=== PATIENT | male | born 1950 | race Caucasian/White ===

== ENCOUNTER 2024-08-02 08:30 | Day surgery (SDC) | payer MEDICARE, OTHER ==
[2024-08-02] MEDS: Lactated Ringers 1,000 ML IV SCH (08:51)
[2024-08-02] MEDS ORDERED: Propofol 200 MG/20 ML SDV ONE (08:51)
[2024-08-02] MEDS ORDERED: fentaNYL 100 MCG/2 ML SDV ONE (08:51)
== END 2024-08-02 11:37 | disposition home or self-care (01) ==
LOC: VM.SDS 08:30
PROVIDERS: ATTEND Family Medicine
DX: Z12.11 Encounter for screening for malignant neoplasm of colon (principal); K57.30 Diverticulosis of large intestine without perforation or abscess without bleeding; R19.5 Other fecal abnormalities; E78.00 Pure hypercholesterolemia, unspecified; I10 Essential (primary) hypertension; E11.9 Type 2 diabetes mellitus without complications; G47.30 Sleep apnea, unspecified; M10.072 Idiopathic gout, left ankle and foot; M75.21 Bicipital tendinitis, right shoulder; F17.210 Nicotine dependence, cigarettes, uncomplicated; Z79.82 Long term (current) use of aspirin; Z79.899 Other long term (current) drug therapy
CPT/HCPCS: 00811; 99100; J2704; J3010; J7120

== ENCOUNTER 2024-12-03 08:23 | Emergency (ER) | payer MEDICARE, OTHER ==
[2024-12-03 09:17] LABS: BASOPHILS PERCENT AUTO 0.2 % (0.2-1.2); EOSINOPHILS ABSOLUTE AUTO 0.1 x10^3/uL (0.0-0.5); EOSINOPHILS PERCENT AUTO 1.6 % (0.0-4.0); HEMATOCRIT 42.5 % (40.0-52.0); HEMOGLOBIN 14.4 g/dL (14.0-18.0); LYMPHOCYTES PERCENT AUTO 16.2 % (25.0-50.0); MEAN CORPUSCULAR HEMOGLOBIN 29.9 pg (26.0-32.0); MEAN CORPUSCULAR HGB CONC 33.9 g/dL (32.0-36.0); MEAN CORPUSCULAR VOLUME 88.4 fL (78.0-93.0); MONOCYTES ABSOLUTE AUTO 0.7 x10^3/uL (0.0-0.8); MONOCYTES PERCENT AUTO 10.8 % (2.0-11.0); NEUTROPHILS ABSOLUTE AUTO 4.4 x10^3/uL (1.8-7.7); NEUTROPHILS PERCENT AUTO 71.2 % (50.0-80.0); PLATELET COUNT,PLT 160 x10^3/uL (130-400); RED BLOOD CELL COUNT 4.81 x10^6/uL (4.5-6.0); WHITE BLOOD CELL COUNT,WBC 6.1 x10^3/uL (4.0-10.0)
[2024-12-03 09:18] LABS: APPEARANCE,URINE CLEAR (CLEAR); BILIRUBIN,URINE NEGATIVE (NEGATIVE); COLOR,URINE YELLOW (YELLOW); GLUCOSE,URINE NEGATIVE (NEGATIVE); KETONES,URINE NEGATIVE (NEGATIVE); LEUKOCYTE ESTERASE,URINE NEGATIVE (NEGATIVE); NITRITE,URINE NEGATIVE (NEGATIVE); OCCULT BLOOD,URINE NEGATIVE (NEGATIVE); PH,URINE 5.5 (5.0-8.0); PROTEIN,URINE NEGATIVE (NEGATIVE); UROBILINOGEN,URINE 0.2 EU/dL (0.2)
[2024-12-03 09:35] LABS: BACTERIA,URINE RARE /HPF (NOT SEEN); EPITHELIAL CELLS,URINE RARE; RBC,URINE NOT SEEN /HPF (NOT SEEN); WBC,URINE NOT SEEN /HPF (NOT SEEN)
[2024-12-03 09:37] LABS: A/G RATIO 1.18; ALANINE AMINOTRANSFERASE,ALT 37 U/L (16-63); ALKALINE PHOSPHATASE 97 U/L (46-116); ANION GAP 12.9 mmol/L (5-15); ASPARTATE AMNIOTRANSFERASE,AST 21 U/L (15-37); BILIRUBIN TOTAL 0.5 mg/dL (0.2-1.0); BLOOD UREA NITROGEN,BUN 19 mg/dL (7-18); CALCIUM 9.5 mg/dL (8.5-10.1); CARBON DIOXIDE,CO2 31 mmol/L (21-32); CHLORIDE,CL 104 mmol/L (98-107); CREATININE 1.2 mg/dL (0.70-1.30); ESTIMATED GFR 64 mL/min (>=60); GLUCOSE RANDOM 125 mg/dL (70-99); MAGNESIUM 1.8 mg/dL (1.8-2.4); POTASSIUM,K 3.9 mmol/L (3.5-5.1); PROTEIN TOTAL,TP 7.4 g/dL (6.4-8.2); SODIUM,NA 144 mmol/L (136-145)
== END 2024-12-03 10:02 | disposition home or self-care (01) ==
LOC: VM.ED 08:23
DX: R41.0 Disorientation, unspecified (principal); R26.89 Other abnormalities of gait and mobility; I10 Essential (primary) hypertension; E78.00 Pure hypercholesterolemia, unspecified; E11.9 Type 2 diabetes mellitus without complications; F17.210 Nicotine dependence, cigarettes, uncomplicated; Z79.82 Long term (current) use of aspirin; Z79.899 Other long term (current) drug therapy
CPT/HCPCS: 36415; 70450; 71045; 80053; 81001; 83735; 85025; 99284; 99285